=== PATIENT | male | born 1930 | race Caucasian/White ===

== ENCOUNTER 2016-06-13 09:07 | Emergency (ER) | payer MEDICARE ==
[~2016-06-13] VITALS: Ht 175.3 cm; Wt 84.1 kg
[~2016-06-13 09:07] MED LIST: ALEVE 220MG220 MG PO; AMITRIPTYLINE H10 M1 PO; ASPIR-LOW81 MG PO; ASPIRIN 81M81 MG/TA2 PO; ASPIRIN E.C. 8181 MG PO; ATENOLOL50 MG PO; BENADRYL 50MG C50 MG PO; CARDI-OMEGA1000 MG PO; CLOPIDOGREL; COUMADIN 5MG5 MG/TAB PO; CRANBERRY1 CAP PO; FISH OIL1 IU PO; FISH OIL1000 MG PO; GLUCOPHAGE XR500 M1 PO; GLUCOPHAGE500 MG/TAB PO; KLOR-CON 1010 MEQ PO; LANOXIN 0.120.125 MG PO; LASIX 20MG TABL20 MG PO; LASIX 40MG TABL40 MG PO; LUTEIN1 BEA; LUTEIN20 MG PO; MOTRIN 200200 MG/TAB PO; MULTIVITAMIN1 SGL PO; MVI PO; NORVASC 5MG5 MG/TAB PO; PACERONE200 MG PO; PAXIL 10MG10 MG PO; PLAVIX 75MG TAB75 MG PO; PRESERVISION1 SGL PO; PRILOSEC 20MG20 MG PO; PRINIVIL20 MG PO; TENORMIN 5050 MG/TAB PO; VITA-BEE WITH C1 TAB PO; VITAMIN E800 I1 PO
[2016-06-13 09:11] VITALS: BP 165/92; TEMP 97
[2016-06-13] MEDS ORDERED: FLEXERIL 1010 MG/TAB PO (11:09)
[2016-06-13] MEDS ORDERED: NORCO 325 MG-51 TAB PO (11:09)
[2016-06-13 11:38] LABS: BASO # 0.1 (0.0-0.2); BASO % 0.8 % (0.0-2.0); EOS # 0.1 (0.0-0.7); EOS % 0.6 % (0-4.0); GRAN # 6.6 (1.4-6.5); GRAN % 84.7 % (42.2-75.2); HEMATOCRIT 41.8 % (42.0-52.0); HEMOGLOBIN 13.3 g/dl (13.5-18.0); LYMPH # 0.7 (1.2-3.4); LYMPH % 8.6 % (20.0-51.0); MEAN CELL VOLUME 85 fl (80.0-100.0); MEAN CORPUSCULAR HEMOGLOBIN 27 pg (27.0-31.0); MEAN CORPUSCULAR HGB CONC 32 g/dl (33.0-37.0); MEAN PLATELET VOLUME 10.6 fl (7.4-10.4); MONO # 0.4 (0.1-0.6); MONO % 4.9 % (1.7-9.3); PLATELET COUNT 198 K/mm3 (130-400); RED BLOOD COUNT 4.91 M/mm3 (4.20-5.60); REDCELL DISTRIBUTION WIDTH-CV 14.2 % (11.5-14.5); WHITE BLOOD COUNT 7.8 K/mm3 (4.8-10.8)
[2016-06-13 11:44] LABS: PROTHROMBIN TIME 36.2 SECONDS (9.7-12.8)
[2016-06-13 11:47] LABS: CALCIUM 9.6 mg/dL (8.4-10.2); CREATININE, serum 1.05 mg/dL (0.66-1.25); POTASSIUM 4.7 mmol/L (3.4-5.0)
[2016-06-13 11:52] LABS: INR 3.2 (0.8-3.0)
[2016-06-13 12:28] VITALS: PULSE 71
== END 2016-06-13 12:28 | disposition home or self-care (01) ==
LOC: COL.ER 09:07
PROVIDERS: Physician Assistant
DX: M54.89 Other dorsalgia (principal); E11.9 Type 2 diabetes mellitus without complications; Z79.84 Long term (current) use of oral hypoglycemic drugs; I48.91 Unspecified atrial fibrillation; Z51.81 Encounter for therapeutic drug level monitoring; Z79.01 Long term (current) use of anticoagulants; M19.011 Primary osteoarthritis, right shoulder
CPT/HCPCS: J1170; J1885; J2405

== ENCOUNTER → 2016-07-25 | Outpatient (CLI) | payer MEDICARE ==
[~2016-07-25] MED LIST changes: +FLEXERIL 1010 MG/TAB PO; +NORCO 325 MG-51 TAB PO
== END ==
LOC: COL.RAD 11:48
DX: M50.022 Cervical disc disorder at C5-C6 level with myelopathy (principal); M25.78 Osteophyte, vertebrae

== ENCOUNTER 2017-04-08 18:34 | Emergency (ER) | payer MEDICARE ==
[~2017-04-08] VITALS: Ht 175.3 cm; Wt 84.5 kg
[2017-04-08 18:52] VITALS: BP 152/77; TEMP 97.7
[2017-04-08 20:46] VITALS: PULSE 74
== END 2017-04-08 20:47 | disposition home or self-care (01) ==
LOC: COL.ER 18:34
DX: S61.214A Laceration without foreign body of right ring finger without damage to nail, initial encounter (principal); E11.9 Type 2 diabetes mellitus without complications; I10 Essential (primary) hypertension; I48.91 Unspecified atrial fibrillation; Z87.19 Personal history of other diseases of the digestive system; Z79.01 Long term (current) use of anticoagulants; Z79.82 Long term (current) use of aspirin; Z79.84 Long term (current) use of oral hypoglycemic drugs; W26.8XXA Contact with other sharp object(s), not elsewhere classified, initial encounter; Y92.009 Unspecified place in unspecified non-institutional (private) residence as the place of occurrence of the external cause

== ENCOUNTER → 2018-09-24 | Outpatient (CLI) | payer MEDICARE ==
[2018-09-24 11:01] LABS: BASO # 0.1 (0.0-0.2); BASO % 1.3 % (0.0-2.0); EOS # 0.2 (0.0-0.7); EOS % 3.1 % (0-4.0); GRAN # 5.3 (1.4-6.5); GRAN % 73.5 % (42.2-75.2); HEMOGLOBIN 14.5 g/dl (13.5-18.0); LYMPH # 1.1 (1.2-3.4); LYMPH % 14.6 % (20.0-51.0); MEAN CELL VOLUME 87 fl (80.0-100.0); MEAN CORPUSCULAR HEMOGLOBIN 28 pg (27.0-31.0); MEAN CORPUSCULAR HGB CONC 32 g/dl (33.0-37.0); MONO # 0.5 (0.1-0.6); MONO % 7.2 % (1.7-9.3); PLATELET COUNT 195 K/mm3 (130-400); RED BLOOD COUNT 5.19 M/mm3 (4.20-5.60); REDCELL DISTRIBUTION WIDTH-CV 14.1 % (11.5-14.5)
[2018-09-24 11:20] LABS: ERYTHROCYTE SEDIMENTATION RATE 22 mm/hr (0-30)
== END ==
LOC: COL.LAB 10:35
PROVIDERS: Nurse Practitioner Family
DX: M79.674 Pain in right toe(s) (principal)

== ENCOUNTER 2019-09-19 09:08 | Emergency (ER) | payer MEDICARE ==
[~2019-09-19] VITALS: Ht 175.3 cm; Wt 89.1 kg
[2019-09-19 09:12] VITALS: TEMP 98
[2019-09-19 09:42] LABS: BASO # 0.1 (0.0-0.2); BASO % 1.3 % (0.0-2.0); EOS # 0.2 (0.0-0.7); EOS % 3.5 % (0-4.0); GRAN # 2.9 (1.4-6.5); GRAN % 63.1 % (42.2-75.2); HEMATOCRIT 40.8 % (42.0-52.0); HEMOGLOBIN 13.4 g/dl (13.5-18.0); LYMPH % 22.9 % (20.0-51.0); MEAN CELL VOLUME 89 fl (80.0-100.0); MEAN CORPUSCULAR HEMOGLOBIN 29 pg (27.0-31.0); MEAN CORPUSCULAR HGB CONC 33 g/dl (33.0-37.0); MEAN PLATELET VOLUME 10.2 fl (7.4-10.4); MONO # 0.4 (0.1-0.6); PLATELET COUNT 160 K/mm3 (130-400); RED BLOOD COUNT 4.61 M/mm3 (4.20-5.60); REDCELL DISTRIBUTION WIDTH-CV 13.2 % (11.5-14.5)
[2019-09-19 09:50] LABS: INR 2.1 (0.8-3.0); PROTHROMBIN TIME 24.7 SECONDS (9.7-12.8)
[2019-09-19 10:42] VITALS: BP 137/74; PULSE 63
== END 2019-09-19 10:39 | disposition home or self-care (01) ==
LOC: COL.ER 09:08
PROVIDERS: Emergency Medicine
DX: S61.206A Unspecified open wound of right little finger without damage to nail, initial encounter (principal); I48.91 Unspecified atrial fibrillation; E11.9 Type 2 diabetes mellitus without complications; Z79.01 Long term (current) use of anticoagulants; Z79.84 Long term (current) use of oral hypoglycemic drugs; W28.XXXA Contact with powered lawn mower, initial encounter